=== PATIENT | male | born 1960 | race Caucasian/White ===

== ENCOUNTER 2018-05-24 08:43 | Day surgery (SDC) | payer OTHER ==
[2018-05-18 14:37] LABS: Absolute Lymphocytes (CBC) 1.6 K/uL (0.7-4.9); Absolute Monocytes 0.8 K/uL (0.1-1.3); Absolute Neutrophil 3.5 K/uL (1.8-8.0); Eosinophils % 2.2 % (0-4.4); Hematocrit 44.1 % (39.6-49.0); Lymphocytes % 26.8 % (15.3-44.8); MCV 91.4 fL (80-100); MPV 8.2 fL (7.6-11.3); RBC Red Blood Cell Count 4.83 M/uL (4.33-5.43)
[2018-05-18 14:51] LABS: Potassium 4.2 mmol/L (3.5-5.1)
--- NOTE | 2018-05-18 15:17 | RAD REPORT ---
EXAM DESCRIPTION: RAD - Chest Pa And Lat (2 Views) - 05/18/2018 2:30 pm CLINICAL HISTORY: Preop chest examination, hypertension, pending hernia repair COMPARISON: June 2013 TECHNIQUE: PA and lateral views of the chest were obtained. FINDINGS: The lungs are clear. Lung markings are similar to comparison. Heart size is normal and ce ntral vasculature is within normal limits. No pleural effusion or pneumothorax seen. No acute bony finding noted. No aortic abnormality. IMPRESSION: No acute cardiopulmonary process. No significant interval change.
--- NOTE | 2018-05-18 16:53 | EKG ---
Test Date: 2018-05-18 Test Time: 14:18:11 [place] Pruner: VIKTORIA MEASUREMENT RESULTS: Intervals: Rate: 59 SC: 152 QRSD: 94 QT: 416 QTc: 411 [place]: P: 63 SC: 152 QRS: 63 T: 68 INTERPRETIVE STATEMENTS: Sinus bradycardia Otherwise normal ECG No previous ECG available for comparison Electronically Signed On 05-18-18 16:52:45 CDT by Demarco Riddle
[~2018-05-24 08:43] MED LIST: CEFAZOLIN/SWI 1gm 1 GM/10 ML SYR IV SCH; CEFAZOLIN/SWI 1gm 1 GM/10 ML SYR IVP SCH
[2018-05-24] MEDS ORDERED: Ringers Lactate 1,000 ML IV ONE (09:05)
[2018-05-24] MEDS ORDERED: CEFAZOLIN/SWI 1gm 1 GM/10 ML SYR ONE (09:05)
[2018-05-24] MEDS ORDERED: PROPOFOL 200 MG/20 ML VIAL IV ONE (09:37)
[2018-05-24] MEDS ORDERED: LIDOCAINE 2% MPF 5 ML VIAL ONE (09:38)
[2018-05-24] MEDS ORDERED: ROCURONIUM 50 MG/5 ML VIAL IV ONE (09:38)
[2018-05-24] MEDS ORDERED: MIDAZOLAM HCL 2 MG/2 ML INJ ONE (09:38)
[2018-05-24] MEDS ORDERED: ONDANSETRON HCL 40 MG/20 ML VIAL ONE (09:39)
[2018-05-24] MEDS ORDERED: FENTANYL CITR 100 MCG/2 ML ONE ×2 (09:39→10:52)
[2018-05-24] MEDS ORDERED: GLYCOPYRROLATE 0.2 MG/ML SYR ONE (10:55)
[2018-05-24] MEDS ORDERED: NEOSTIGMINE 1 MG/ML -5 ML SYRINGE ONE (10:56)
[2018-05-24] MEDS ORDERED: MEPERIDINE HCL 25 MG/0.5 ML ONE ×2 (11:27→11:33)
[2018-05-24] MEDS ORDERED: HYDROCODONE/APAP 7.5/325 MG TAB ONE (12:12)
--- NOTE | 2018-05-24 21:30 | OP ---
Date of Procedure: 05/24/2018 Surgeon: Joey Zaragoza MD Preoperative Diagnosis: Left inguinal hernia. Postoperative Diagnosis: Left inguinal hernia. Procedure: Repair of left inguinal hernia. Estimated Blood Loss: Minimal. Specimen: Hernia sac and cord lipoma. Findings: A sliding left inguinal hernia with fat surrounding the sigmoid colon being in the hernia. Anesthesia: General. Complications: None. Disposition: The patient tolerated the procedure in stable condition and taken to Recovery in good g eneral condition. Procedure In Detail: The patient was brought to the OR placed in supine position. General anesthesi a was begun. The patient was prepped and draped in usual sterile fashion. Marcaine 0.5% was infiltr ated locally in the left groin. A 4 cm oblique incision was made between the pubic tubercle and ante rior iliac superior spine. Subcutaneous tissue divided. Terrence's fascia identified and divided. Ap oneurosis identify and mobilized inferiorly to expose the shelving edge, then opened through the exte rnal ring. Ilioinguinal nerve, retracted out of the field of dissection. Cord mobilized and skeleto nized. A large cord lipoma present, which was excised and base tied with 2-0 chromic. Indirect sac was identified, opened, and there was a sigmoid colon with the mesocolon being attached to the hernia sac which was released with sharp dissection. Then, the sigmoid colon was reduced back into the per itoneal cavity and then a high ligation of the sac was accomplished with 2-0 Prolene suture ligature, free hand tie and then hernia sac was excised sent to Pathology as specimen. As this was a sliding hernia, Marlex mesh plug was placed and secured with VersaTack stapler, Onlay mesh was placed on the inguinal floor, secured with medially to the pubic tubercle, superior to the conjoined tendon, and la terally to each other and inferiorly to the shelving edge. Then, cord structures and ilioinguinal ne rve placed back in anatomical location, then 2-0 Prolene was used to close the aponeurosis, a 3-0 chr omic used to close Terrence's fascia. Aiyana used to close skin. Sterile dressing was applied. The patient was awakened and taken to Recovery in good general condition. Discharge Note: The patient will go to Day Surgery and home when stable. Disposition: Home. Condition: Stable. Discharge Instructions: Resume home medications and diet. Activity as tolerated. No heavy lifting. Remove outer dressing in 2 days. Shower. Keep wound clean and dry. Follow up in my office in a [place]. Call for appointment. Tylenol No.3, 1 tablet p.o. q.4 p.r.n. pain. A scrotal support and ice pack has ordered. /MODL Voice ID: [id number] Report ID: [id number]
== END 2018-05-24 13:40 | disposition home or self-care (01) ==
LOC: OR 08:43
PROVIDERS: ATTEND Surgery
PROC: 0YU60JZ Supplement Left Inguinal Region with Synthetic Substitute, Open Approach (ICD-10-PCS; principal; 2018-05-24 10:00)
DX: K40.90 Unilateral inguinal hernia, without obstruction or gangrene, not specified as recurrent (principal); I10 Essential (primary) hypertension; Z88.3 Allergy status to other anti-infective agents
CPT/HCPCS: 36415; 71046; 80048; 85025; 88302; 88304; 93005; J0690; J2175; J2250; J2405; J2710; J3010